=== PATIENT | female | born 1960 ===

== ENCOUNTER 2025-06-17 05:00 | Outpatient (RCR) | payer MEDICAID, OTHER, SELFPAY | END 2025-07-16 23:59 | disposition home or self-care (01) | LOC: WPT 05:00 | PROVIDERS: Visit Provider Nurse Practitioner Family | DX: M25.511 Pain in right shoulder (principal) | CPT/HCPCS: 97110; 97112; 97140; 97161; 97530 ==

== ENCOUNTER 2025-08-15 08:33 | Outpatient (RCR) | payer MEDICAID, OTHER, SELFPAY | END 2025-08-16 23:59 | disposition home or self-care (01) | LOC: WPT 08:33 | PROVIDERS: Visit Provider Nurse Practitioner Family | DX: M25.511 Pain in right shoulder (principal) | CPT/HCPCS: 97110; 97112; 97140; 97530 ==

== ENCOUNTER 2025-08-21 08:00 | Outpatient (RCR) | payer MEDICAID, OTHER, SELFPAY | END 2025-09-15 23:59 | disposition home or self-care (01) | LOC: WPT 08:00 | PROVIDERS: Visit Provider Nurse Practitioner Family | DX: M25.511 Pain in right shoulder (principal) | CPT/HCPCS: 97110; 97112; 97140; 97530 ==